=== PATIENT | female | born 1955 | race Caucasian/White ===

== ENCOUNTER → 2019-03-05 | Outpatient (CLI) | payer BC | END | disposition home or self-care (01) | LOC: RAH 09:58 | PROVIDERS: ATTEND Internal Medicine Critical Care Medicine | DX: K76.0 Fatty (change of) liver, not elsewhere classified (principal); R16.0 Hepatomegaly, not elsewhere classified | CPT/HCPCS: 76705 ==

== ENCOUNTER → 2023-11-26 | Outpatient (CLI) | payer MEDICARE | END | disposition home or self-care (01) | LOC: RAH 13:04 | PROVIDERS: ATTEND Internal Medicine Critical Care Medicine | DX: H53.40 Unspecified visual field defects (principal); H53.123 Transient visual loss, bilateral | CPT/HCPCS: 70450; 70460; 93880 ==